=== PATIENT | female | born 1995 | race Caucasian/White ===

== ENCOUNTER 2020-06-13 15:06 | Emergency (ER) | payer BC, SELFPAY ==
[~2020-06-13] VITALS: Ht 149.9 cm; Wt 66.2 kg
[2020-06-13 15:07] VITALS: BP 145/89; Ht 149.9 cm; Wt 66.2 kg
== END 2020-06-13 15:50 | disposition home or self-care (01) ==
LOC: ED 15:06
DX: G43.909 Migraine, unspecified, not intractable, without status migrainosus (principal); Z20.828 Contact with and (suspected) exposure to other viral communicable diseases
CPT/HCPCS: U0003-CS